=== PATIENT | male | born 1965 | race Caucasian/White ===

== ENCOUNTER 2020-10-04 11:52 | Emergency (ER) | payer OTHER, MEDICARE | END 2020-10-04 13:18 | disposition home or self-care (01) | LOC: EDBD 11:52 → ERS 11:52 | DX: M25.512 Pain in left shoulder (principal); F17.220 Nicotine dependence, chewing tobacco, uncomplicated; V49.9XXA Car occupant (driver) (passenger) injured in unspecified traffic accident, initial encounter ==

== ENCOUNTER 2021-06-12 10:52 | Inpatient (IN) | payer MEDICARE, MEDICAID ==
[2021-06-12 11:50] LABS: Bacteria/HPF None Seen HPF (None Seen); Bilirubin 1+ (Negative); Blood, Urine 2+ (Negative); Clarity Hazy (Clear); Glucose, Urine (Dipstick) Normal (Negative); Ketone, Urine 10 mg/dL (Negative); Leukocyte Negative Leu/uL (Negative); Nitrite Negative (Negative); Protein, Urine (Dipstick) 300 mg/dL (Neg-Trace); Specific Gravity, Urine 1.033 (1.002-1.036); Squamous Epithelial 0-3 HPF (0-3); Urobilinogen 6 mg/dL (Less than 2); WBC/HPF 0-3 HPF (0-3)
[2021-06-12 11:51] LABS: #Lymphocytes 0.8 thou/uL (1.20-3.40); #Neutrophils 13.8 thou/uL (1.40-6.50); %Basophils 0.1 % (0.0-1.0); %Lymphocytes 5.2 % (21.0-51.0); %Monocytes 6.3 % (0.0-10.0); %Neutrophils 88.5 % (42.0-75.0); Hemoglobin 18.8 g/dL (14.0-18.0); Mean Corpuscular HGB CONC 33.3 g/dL (32.0-36.0); Mean Corpuscular Hemoglobin 30.3 pg (27.0-31.0); Mean Platelet Volume 8.4 fL (7.4-10.4); Platelet Count 142 thou/uL (130-400); RBC Distribution Width 12.7 % (11.5-14.5); White Blood Cell (WBC) Count 15.6 thou/uL (4.8-10.8)
[2021-06-12 12:11] LABS: Band 13 % (5-11); Lymphocytes 5 % (21-51); MDiff Complete? YES; Monocytes 6 % (0-10); Neutrophil 76 % (42-75); Platelet Morphology Comment Appears Adequate; RBC Morphology Normal
[2021-06-12 12:18] LABS: ALT (SGPT) 59 U/L (8-55); AST (SGOT) 135 U/L (5-34); Albumin 4.4 g/dL (3.5-5.0); Alkaline Phosphatase 69 U/L (40-110); Anion Gap 20 mmol/L (10-20); BUN (Urea Nitrogen) 27 mg/dL (8.4-25.7); Bilirubin, Total 2.5 mg/dL (0.2-1.2); Calc. Creatinine Clearance 0 mL/min (70-130); Calcium 10.5 mg/dL (7.8-10.44); Carbon Dioxide 24 mmol/L (22-29); Chloride 101 mmol/L (98-107); Globulin 3.7 g/dL (2.4-3.5); Glucose 117 mg/dL (70-105); Potassium 4.1 mmol/L (3.5-5.1); Protein, Total 8.1 g/dL (6.0-8.3); Sodium 141 mmol/L (136-145)
[2021-06-12 12:31] LABS: CK (CPK) 6177 U/L (30-200)
[2021-06-12 12:41] LABS: SARS-CoV-2 NAA Rapid Test Not Detected (NotDetected)
[2021-06-12] MEDS ORDERED: Midazolam HCl 5 mg/ml Vial ONE (13:38)
[2021-06-12] MEDS ORDERED: levETIRAcetam 2,000 MG in Sodium Chloride 0.9% 100 ML IVPB SCH (15:00)
[2021-06-12] MEDS ORDERED: Aspirin 300 MG Suppository ONE (15:39)
[2021-06-12] MEDS ORDERED: hydrALAZINE 20 MG/ML VIAL SLOW IVP PRN (16:00)
[2021-06-12] MEDS ORDERED: Labetalol HCl 100 MG/20 ML VIAL SLOW IVP PRN (16:08)
[2021-06-12 16:20] LABS: Lactic Acid 1.3 mmol/L (0.5-2.2)
[2021-06-12 17:07] LABS: Hemoglobin A1c 5.1 % (4.0-6.0)
[2021-06-12] MEDS ORDERED: Vancomycin 1 GM in Premix Bag 1 BAG IVPB SCH (18:37)
[2021-06-12] MEDS ORDERED: Lorazepam 2 MG/ML VIAL SLOW IVP PRN (18:39)
[2021-06-12] MEDS ORDERED: cefTRIAXone\\ROCEPHIN 2 GM in Sodium Chloride 0.9% 100 ML IVPB SCH (18:45)
[2021-06-12] MEDS ORDERED: VANCOMYCIN 2 GRAM/400 ML BAG 2 GM in Premix Bag 1 BAG IVPB SCH (19:00)
[2021-06-12] MEDS ORDERED: Atorvastatin Calcium 40 MG TAB PO SCH (21:00)
[2021-06-12] MEDS ORDERED: levETIRAcetam in NS 500 MG in Premix Bag 1 BAG IVPB SCH (21:00)
[2021-06-12] MEDS: Sodium Chloride 0.9% 1,000 ML IV SCH (22:00)
[2021-06-13] MEDS ORDERED: VANCOMYCIN 2 GRAM/400 ML BAG 2 GM in Premix Bag 1 BAG IVPB SCH (08:00)
[2021-06-13] MEDS ORDERED: Acetaminophen 325 MG Suppository PR PRN (08:11)
[2021-06-13] MEDS ORDERED: FLU VACC QS2021-22(6MOS UP)/PF 60 MCG/0.5 ML SYRINGE IM ONE (09:00)
[2021-06-13] MEDS ORDERED: Aspirin 300 MG Suppository PR SCH (09:00)
[2021-06-13 10:16] LABS: #Eosinphils 0.1 thou/uL (0.0-0.7); #Lymphocytes 1.1 thou/uL (1.20-3.40); #Monocytes 0.9 thou/uL (0.11-0.59); #Neutrophils 8.6 thou/uL (1.40-6.50); %Basophils 0.1 % (0.0-1.0); %Eosinophils 0.6 % (0.0-10.0); %Lymphocytes 10.1 % (21.0-51.0); %Monocytes 8.5 % (0.0-10.0); %Neutrophils 80.7 % (42.0-75.0); Hemoglobin 15.9 g/dL (14.0-18.0); Mean Corpuscular HGB CONC 32.1 g/dL (32.0-36.0); Mean Corpuscular Hemoglobin 30.6 pg (27.0-31.0); Mean Corpuscular Volume 95.5 fL (78.0-98.0); Mean Platelet Volume 8.1 fL (7.4-10.4); Platelet Count 138 thou/uL (130-400); RBC Distribution Width 12.6 % (11.5-14.5); White Blood Cell (WBC) Count 10.6 thou/uL (4.8-10.8)
[2021-06-13 10:25] LABS: ALT (SGPT) 55 U/L (8-55); AST (SGOT) 102 U/L (5-34); Albumin 3.2 g/dL (3.5-5.0); Alkaline Phosphatase 54 U/L (40-110); Anion Gap 15 mmol/L (10-20); BUN (Urea Nitrogen) 20 mg/dL (8.4-25.7); Bilirubin, Total 1.1 mg/dL (0.2-1.2); CK (CPK) 2546 U/L (30-200); Calc. Creatinine Clearance 138 mL/min (70-130); Calcium 9.3 mg/dL (7.8-10.44); Carbon Dioxide 20 mmol/L (22-29); Chloride 111 mmol/L (98-107); Globulin 3.3 g/dL (2.4-3.5); Glucose 110 mg/dL (70-105); Magnesium 2.1 mg/dL (1.6-2.6); Potassium 5.2 mmol/L (3.5-5.1); Protein, Total 6.5 g/dL (6.0-8.3); Sodium 141 mmol/L (136-145)
[2021-06-13] MEDS: Sodium Chloride 0.9% 1,000 ML IV SCH ×2 (10:31→17:48)
[2021-06-13] MEDS: levETIRAcetam in NS 500 MG in Premix Bag 1 BAG IVPB SCH ×2 (10:33→19:59)
[2021-06-13 11:00] LABS: Troponin I 0.024 ng/mL (< 0.028)
[2021-06-13] MEDS ORDERED: Midazolam HCl 5 mg/ml Vial ONE (15:47)
[2021-06-13] MEDS ORDERED: Midazolam HCl 2 mg/2 ml Vial SLOW IVP SCH (15:55)
[2021-06-13 17:34] LABS: Actual Bicarbonate (HCO3a) 26.8 mEq/L (22-28); Base Excess (BEa) 2.2 mEq/L (-2.0 to +3.0); CO2 Tension 41.4 mmHg (35.0-45.0); Calcium, Ionized (arterial) 1.21 mmol/L (1.12-1.30); Carboxyhemoglobin (COHb) 0.7 gm% (0.0-3.0); Hemoglobin (Hb) 15.6 g/dL (14.0-18.0); O2 Tension (PaO2), arterial 69.1 mmHg (80.0-100.0); Potassium - ABG Lab 3.85 mmol/L (3.70-5.30); Puncture Site RRA; pH, Arterial 7.43 (7.35-7.45)
[2021-06-13] MEDS ORDERED: Morphine 4 MG/ML VIAL SLOW IVP PRN (18:25)
[2021-06-13] MEDS: Lorazepam 2 MG/ML VIAL SLOW IVP PRN (18:29)
[2021-06-13] MEDS ORDERED: Propofol BOLUS 1,000 MG/100 ML VIAL IV PRN (18:30)
[2021-06-13] MEDS: Propofol 1,000 MG/100 ML VIAL IV PRN ×2 (18:30→19:58)
[2021-06-13] MEDS ORDERED: Fentanyl BOLUS 250 ML IVPB PRN (18:30)
[2021-06-13] MEDS ORDERED: DISCONTINUE PREVIOUS NARCOTIC PAIN MEDICATIONS AND BENZODIAZEPINES FS SCH (18:30)
[2021-06-13] MEDS ORDERED: Fentanyl CADD 100 ML IV SCH (18:30)
[2021-06-13] MEDS ORDERED: Vecuronium 10 MG VIAL ONE (18:36)
[2021-06-13] MEDS ORDERED: Phenylephrine 0.25% Nasal Spray 15 ML BOT ONE (18:36)
[2021-06-13] MEDS ORDERED: Heparin 10,000 UNITS/ 10 ML VIAL SLOW IVP SCH (19:15)
[2021-06-13 19:31] LABS: INR-International Normal Ratio 1.3; Prothrombin Time 16.5 sec (12.0-14.7)
[2021-06-13 19:32] LABS: PTT 30.9 sec (22.9-36.1)
[2021-06-13] MEDS: cefTRIAXone\\ROCEPHIN 2 GM in Sodium Chloride 0.9% 100 ML IVPB SCH (19:58)
[2021-06-13] MEDS: Heparin 25,000 units/D5W 500 ML IV SCH (19:59)
[2021-06-13 21:01] LABS: Actual Bicarbonate (HCO3a) 27.2 mEq/L (22-28); Base Excess (BEa) 2.6 mEq/L (-2.0 to +3.0); CO2 Tension 41.6 mmHg (35.0-45.0); Calcium, Ionized (arterial) 1.21 mmol/L (1.12-1.30); Carboxyhemoglobin (COHb) 1.1 gm% (0.0-3.0); Hemoglobin (Hb) 15.2 g/dL (14.0-18.0); O2 Tension (PaO2), arterial 85.2 mmHg (80.0-100.0); Potassium - ABG Lab 3.72 mmol/L (3.70-5.30); pH, Arterial 7.43 (7.35-7.45)
[2021-06-13 21:02] LABS: Puncture Site RBA
[2021-06-13] MEDS: Acetaminophen 325 MG TAB PO PRN (22:42)
[2021-06-14 04:16] LABS: INR-International Normal Ratio 1.3; Prothrombin Time 16.7 sec (12.0-14.7)
[2021-06-14 04:17] LABS: ALT (SGPT) 53 U/L (8-55); AST (SGOT) 80 U/L (5-34); Albumin 3.1 g/dL (3.5-5.0); Alkaline Phosphatase 46 U/L (40-110); Anion Gap 12 mmol/L (10-20); BUN (Urea Nitrogen) 18 mg/dL (8.4-25.7); Bilirubin, Total 0.8 mg/dL (0.2-1.2); Calc. Creatinine Clearance 151 mL/min (70-130); Calcium 9.2 mg/dL (7.8-10.44); Carbon Dioxide 26 mmol/L (22-29); Chloride 111 mmol/L (98-107); Glucose 109 mg/dL (70-105); PTT 43.1 sec (22.9-36.1); Potassium 3.6 mmol/L (3.5-5.1); Protein, Total 6.1 g/dL (6.0-8.3); Sodium 145 mmol/L (136-145)
[2021-06-14 04:27] LABS: #Lymphocytes 1.1 thou/uL (1.20-3.40); #Monocytes 0.7 thou/uL (0.11-0.59); #Neutrophils 6.4 thou/uL (1.40-6.50); %Basophils 0.3 % (0.0-1.0); %Eosinophils 0.5 % (0.0-10.0); %Lymphocytes 13.4 % (21.0-51.0); %Monocytes 8.9 % (0.0-10.0); %Neutrophils 76.9 % (42.0-75.0); Hemoglobin 14.5 g/dL (14.0-18.0); Mean Corpuscular HGB CONC 33.2 g/dL (32.0-36.0); Mean Corpuscular Hemoglobin 30.8 pg (27.0-31.0); Mean Corpuscular Volume 92.7 fL (78.0-98.0); Mean Platelet Volume 7.7 fL (7.4-10.4); Platelet Count 118 thou/uL (130-400); RBC Distribution Width 12.6 % (11.5-14.5); Red Blood Cell (RBC) Count 4.71 mill/uL (4.70-6.10); White Blood Cell (WBC) Count 8.4 thou/uL (4.8-10.8)
[2021-06-14 04:28] LABS: Platelet Morphology Comment Appears Decreased
[2021-06-14] MEDS ORDERED: Vecuronium 10 MG VIAL IV SCH (08:30)
[2021-06-14] MEDS: levETIRAcetam in NS 500 MG in Premix Bag 1 BAG IVPB SCH (08:43)
[2021-06-14 09:46] LABS: INR-International Normal Ratio 1.3; Prothrombin Time 16.1 sec (12.0-14.7)
[2021-06-14 09:47] LABS: PTT 54.7 sec (22.9-36.1)
[2021-06-14] MEDS ORDERED: Lorazepam 2 MG/ML VIAL SLOW IVP SCH (10:15)
[2021-06-14] MEDS ORDERED: LEVETIRACETAM IVPB SCH (10:30)
[2021-06-14] MEDS ORDERED: SODIUM CHLORIDE 0.9% IVPB SCH (10:30)
[2021-06-14] MEDS: Heparin 25,000 units/D5W 500 ML IV SCH (16:46)
[2021-06-14] MEDS: Propofol 1,000 MG/100 ML VIAL IV PRN (16:46)
[2021-06-14] MEDS: cefTRIAXone\\ROCEPHIN 2 GM in Sodium Chloride 0.9% 100 ML IVPB SCH (19:51)
[2021-06-14] MEDS: levETIRAcetam in NS 1,500 MG in Premix Bag 1 BAG IVPB SCH (20:04)
[2021-06-15] MEDS: Propofol 1,000 MG/100 ML VIAL IV PRN ×3 (00:33→16:18)
[2021-06-15 03:54] LABS: INR-International Normal Ratio 1.3
[2021-06-15 03:56] LABS: PTT 89.4 sec (22.9-36.1)
[2021-06-15] MEDS: Heparin 25,000 units/D5W 500 ML IV SCH ×2 (05:20→19:56)
[2021-06-15] MEDS: Lorazepam 2 MG/ML VIAL SLOW IVP PRN ×4 (07:16→19:56)
[2021-06-15] MEDS: levETIRAcetam in NS 1,500 MG in Premix Bag 1 BAG IVPB SCH ×2 (08:42→19:56)
[2021-06-15] MEDS ORDERED: Pantoprazole 40 MG VIAL IVP SCH (11:45)
[2021-06-15 12:29] LABS: PTT 141.1 sec (22.9-36.1)
[2021-06-15 13:20] LABS: ALT (SGPT) 57 U/L (8-55); AST (SGOT) 66 U/L (5-34); Alkaline Phosphatase 49 U/L (40-110); Anion Gap 11 mmol/L (10-20); BUN (Urea Nitrogen) 19 mg/dL (8.4-25.7); Bilirubin, Total 0.6 mg/dL (0.2-1.2); Calc. Creatinine Clearance 178 mL/min (70-130); Calcium 9.3 mg/dL (7.8-10.44); Carbon Dioxide 27 mmol/L (22-29); Chloride 111 mmol/L (98-107); Globulin 2.9 g/dL (2.4-3.5); Glucose 119 mg/dL (70-105); Potassium 3.2 mmol/L (3.5-5.1); Protein, Total 5.9 g/dL (6.0-8.3)
[2021-06-15 13:21] LABS: Sodium 146 mmol/L (136-145)
[2021-06-15] MEDS: Lacosamide 200 MG in Sodium Chloride 0.9% 50 ML IVPB SCH (14:01)
[2021-06-15] MEDS ORDERED: Magnesium 2 GM/50 ML 2 GM in Premix Bag 1 BAG IVPB SCH (17:30)
[2021-06-15] MEDS ORDERED: fentaNYL 50 mcg/hour Patch TD SCH (17:30)
[2021-06-15] MEDS: cefTRIAXone\\ROCEPHIN 2 GM in Sodium Chloride 0.9% 100 ML IVPB SCH (19:55)
[2021-06-16] MEDS: Lacosamide 200 MG in Sodium Chloride 0.9% 50 ML IVPB SCH ×2 (01:37→14:16)
[2021-06-16] MEDS: Propofol 1,000 MG/100 ML VIAL IV PRN (05:48)
[2021-06-16] MEDS: Lorazepam 2 MG/ML VIAL SLOW IVP PRN (05:48)
[2021-06-16] MEDS: Pantoprazole 40 MG VIAL IVP SCH (07:18)
[2021-06-16] MEDS: levETIRAcetam in NS 1,500 MG in Premix Bag 1 BAG IVPB SCH ×2 (08:56→20:00)
[2021-06-16] MEDS: Heparin 25,000 units/D5W 500 ML IV SCH (09:00)
[2021-06-16] MEDS: cefTRIAXone\\ROCEPHIN 2 GM in Sodium Chloride 0.9% 100 ML IVPB SCH (19:53)
[2021-06-17] MEDS: Lacosamide 200 MG in Sodium Chloride 0.9% 50 ML IVPB SCH ×2 (00:51→13:15)
[2021-06-17] MEDS: Heparin 25,000 units/D5W 500 ML IV SCH (02:10)
[2021-06-17 06:06] VITALS: BMI 37.0
[2021-06-17] MEDS: Pantoprazole 40 MG VIAL IVP SCH (07:39)
[2021-06-17] MEDS: levETIRAcetam in NS 1,500 MG in Premix Bag 1 BAG IVPB SCH ×2 (08:42→20:54)
[2021-06-17] MEDS: cefTRIAXone\\ROCEPHIN 2 GM in Sodium Chloride 0.9% 100 ML IVPB SCH (21:06)
[2021-06-18] MEDS: Lacosamide 200 MG in Sodium Chloride 0.9% 50 ML IVPB SCH ×2 (01:55→13:37)
[2021-06-18] MEDS: Pantoprazole 40 MG VIAL IVP SCH (07:07)
[2021-06-18] MEDS: Acetaminophen 325 MG TAB PO PRN (07:11)
[2021-06-18] MEDS: levETIRAcetam in NS 1,500 MG in Premix Bag 1 BAG IVPB SCH ×2 (09:03→21:01)
[2021-06-18] MEDS: Senokot S 8.6-50 MG TAB PO SCH ×2 (10:02→20:27)
[2021-06-18] MEDS ORDERED: Fentanyl Patch Removal TOP SCH (17:00)
[2021-06-18] MEDS: cefTRIAXone\\ROCEPHIN 2 GM in Sodium Chloride 0.9% 100 ML IVPB SCH (20:27)
[2021-06-19] MEDS: Acetaminophen 325 MG TAB PO PRN (00:56)
[2021-06-19] MEDS: Lacosamide 200 MG in Sodium Chloride 0.9% 50 ML IVPB SCH (01:04)
[2021-06-19] MEDS: Heparin 25,000 units/D5W 500 ML IV SCH (03:33)
[2021-06-19] MEDS ORDERED: Heparin 10,000 UNITS/ 10 ML VIAL SLOW IVP SCH (05:15)
[2021-06-19] MEDS: Pantoprazole 40 MG VIAL IVP SCH (07:29)
[2021-06-19] MEDS: Senokot S 8.6-50 MG TAB PO SCH (07:29)
[2021-06-19 08:52] VITALS: TEMP 99.7
[2021-06-19] MEDS: levETIRAcetam in NS 1,500 MG in Premix Bag 1 BAG IVPB SCH (09:07)
[2021-06-19 14:29] VITALS: BP 109/59
[2021-06-19] MEDS ORDERED: Scopolamine 1.5 mg/72 hour Patch TD SCH (14:30)
== END 2021-06-19 15:26 | disposition hospice, inpatient (51) | DRG 64 ==
LOC: ERS 10:52 → NEURO 14:39 → CCU 16:58
PROVIDERS: ADMIT Internal Medicine; ATTEND Internal Medicine
PROC: 0BH17EZ Insertion of Endotracheal Airway into Trachea, Via Natural or Artificial Opening (ICD-10-PCS; principal; 2021-06-13)
PROC: 5A1955Z Respiratory Ventilation, Greater than 96 Consecutive Hours (ICD-10-PCS; 2021-06-13)
DX: I63.9 Cerebral infarction, unspecified (principal); G93.41 Metabolic encephalopathy; G08 Intracranial and intraspinal phlebitis and thrombophlebitis; J96.00 Acute respiratory failure, unspecified whether with hypoxia or hypercapnia; I60.9 Nontraumatic subarachnoid hemorrhage, unspecified; M62.82 Rhabdomyolysis; E87.2 Acidosis; Z51.5 Encounter for palliative care; Z66 Do not resuscitate; Z20.822 Contact with and (suspected) exposure to COVID-19; R29.733 NIHSS score 33; D72.829 Elevated white blood cell count, unspecified; R74.01 Elevation of levels of liver transaminase levels; D75.1 Secondary polycythemia; E83.52 Hypercalcemia; E87.5 Hyperkalemia; F17.220 Nicotine dependence, chewing tobacco, uncomplicated; R41.89 Other symptoms and signs involving cognitive functions and awareness; R56.9 Unspecified convulsions; R91.1 Solitary pulmonary nodule; E86.0 Dehydration; E66.9 Obesity, unspecified; E87.8 Other disorders of electrolyte and fluid balance, not elsewhere classified; Z82.3 Family history of stroke; Z82.49 Family history of ischemic heart disease and other diseases of the circulatory system; Z68.37 Body mass index [BMI] 37.0-37.9, adult; Z78.1 Physical restraint status
CPT/HCPCS: 0240U; 36415; 36416; 36600; 51702; 70450; 70496; 70551; 71045; 71260; 72125; 80053; 80061; 81003; 81015; 82306; 82550; 82805; 83036; 83605; 83735; 83970; 84443; 84484; 85025; 85610; 85730; 87040; 87086; 93005; 93010; 93306; 93880; 94002; 94003; 95712; 95819; 95957; 96374; C9113; C9254; J0696; J1644; J1953; J2060; J2250; J2704; J3370; J3475; J3490; J7050

== ENCOUNTER 2021-06-19 15:34 | Inpatient (IN) | payer OTHER ==
[2021-06-19] MEDS ORDERED: Morphine 4 MG/ML VIAL SLOW IVP PRN (15:49)
[2021-06-19] MEDS ORDERED: Lorazepam 2 MG/ML VIAL SLOW IVP PRN ×2 (15:49→15:53)
[2021-06-19] MEDS ORDERED: Scopolamine 1.5 mg/72 hour Patch TOP PRN (16:00)
[2021-06-19] MEDS ORDERED: Ondansetron PF 4 MG/2 ML Vial IVP PRN (16:00)
[2021-06-19] MEDS: Lorazepam 2 MG/ML VIAL SLOW IVP SCH ×2 (16:42→17:23)
[2021-06-19] MEDS: diphenhydrAMINE 50 MG/ML VIAL IVP PRN ×2 (16:51→22:27)
[2021-06-19] MEDS: Morphine 4 MG/ML VIAL SLOW IVP PRN (17:00)
[2021-06-19] MEDS: Morphine 4 MG/ML VIAL SLOW IVP SCH ×3 (17:01→20:38)
[2021-06-20] MEDS: Lorazepam 2 MG/ML VIAL SLOW IVP SCH ×6 (00:54→20:54)
[2021-06-20] MEDS: Morphine 4 MG/ML VIAL SLOW IVP SCH ×6 (00:55→20:54)
[2021-06-21] MEDS: Lorazepam 2 MG/ML VIAL SLOW IVP SCH ×6 (01:13→21:44)
[2021-06-21] MEDS: Morphine 4 MG/ML VIAL SLOW IVP SCH ×6 (01:14→21:44)
[2021-06-21] MEDS: diphenhydrAMINE 50 MG/ML VIAL IVP PRN (05:37)
[2021-06-21] MEDS ORDERED: Acetaminophen 650 MG Suppository ONE (10:00)
[2021-06-21] MEDS: Acetaminophen 650 MG Suppository PR PRN (10:01)
[2021-06-22] MEDS: Morphine 4 MG/ML VIAL SLOW IVP SCH ×6 (01:45→21:42)
[2021-06-22] MEDS: Lorazepam 2 MG/ML VIAL SLOW IVP SCH ×6 (01:45→21:42)
[2021-06-22] MEDS: Morphine 4 MG/ML VIAL SLOW IVP PRN (14:15)
[2021-06-22] MEDS: Acetaminophen 650 MG Suppository PR PRN ×2 (16:21)
[2021-06-22 20:22] VITALS: BP 99/70
[2021-06-23] MEDS: Morphine 4 MG/ML VIAL SLOW IVP SCH ×3 (01:40→09:36)
[2021-06-23] MEDS: Lorazepam 2 MG/ML VIAL SLOW IVP SCH ×3 (01:40→09:36)
[2021-06-23 08:33] VITALS: TEMP 102.4
== END 2021-06-23 09:27 | disposition expired | DRG 951 ==
LOC: CCU 15:34 → T4-A 06-20 00:13
PROVIDERS: ADMIT Family Medicine; ATTEND Family Medicine
DX: Z51.5 Encounter for palliative care (principal); I63.9 Cerebral infarction, unspecified; I61.9 Nontraumatic intracerebral hemorrhage, unspecified; I60.9 Nontraumatic subarachnoid hemorrhage, unspecified; M62.82 Rhabdomyolysis; E87.2 Acidosis; G40.909 Epilepsy, unspecified, not intractable, without status epilepticus; R74.01 Elevation of levels of liver transaminase levels; E86.0 Dehydration; E83.52 Hypercalcemia; D75.1 Secondary polycythemia
CPT/HCPCS: J1200; J2060; J2270